=== PATIENT | female | born 1995 | race Caucasian/White ===

== ENCOUNTER 2018-08-22 18:42 | Emergency (ER) | END 2018-08-22 23:05 | disposition home or self-care (01) ==

== ENCOUNTER 2019-02-03 08:37 | Emergency (ER) | payer OTHER ==
[~2019-02-03] VITALS: Ht 157.5 cm; Wt 70.2 kg
[~2019-02-03 08:37] MED LIST: NAPR-985 PO
[2019-02-03 08:40] VITALS: Ht 157.5 cm; Wt 70.2 kg
[2019-02-03] MEDS ORDERED: ONDANSETRON 4 MG INJ IV STA (09:57)
[2019-02-03] MEDS ORDERED: morphine 4 MG/ML VIAL IV STA (09:57)
[2019-02-03] MEDS ORDERED: ACET500C5 PO (10:41)
[2019-02-03] MEDS ORDERED: ONDA4TAB14 PO (10:41)
--- NOTE | 2019-02-03 11:18 | ERD ---
ER Documentation Chief Complaint Chief Complaint lower abdominal pain, vomitting and diarrhea since 2:30 am today HPI 23-year-old female presenting with abdominal pain and vomiting diarrhea. Patient thinks that she ate some bad vegetables the other day. She took Tylenol. Denies any chest pain or shortness of breath. LNMP January 19. Denies any vaginal bleeding. Denies medical problems. NKDA. Surgical history denies. Social history smokes occasionally. Denies drug use ROS All systems reviewed and are negative except as per history of present illness. Medications Home Meds Active Scripts Acetaminophen* (Tylophen*) 500 Mg Capsule, 1 CAP PO Q6H PRN for PAIN AND OR ELEVATED TEMP, #20 CAP Prov:ROSI ALVES PA-C 02/03/19 Ondansetron (Ondansetron Odt) 4 Mg Tab.rapdis, 4 MG PO Q6H PRN for NAUSEA AND/OR VOMITING, #10 TAB Prov:ROSI ALVES PA-C 02/03/19 Naproxen* (Naprosyn*) 500 Mg Tablet, 500 MG PO BID PRN for PAIN AND/OR INFLAMMATION, #30 TAB Prov:KILEY HEARN PA-C 08/22/18 Allergies Allergies: Coded Allergies: No Known Allergy (Unverified , 02/03/19) PMhx/Soc Medical and Surgical Hx: pt denies Medical Hx, pt denies Surgical Hx Hx Alcohol Use: No Hx Substance Use: Yes (marijuana) Hx Tobacco Use: No Smoking Status: Current every day smoker FmHx Family History: No diabetes, No coronary disease, No other Physical Exam Vitals Vital Signs Date Temp Pulse Resp B/P (MAP) Pulse Ox O2 O2 Flow FiO2 Time Delivery Rate 02/03/19 99.1 83 24 123/83 100 08:40 (96) Physical Exam GENERAL: The patient is well-appearing, well-nourished, in no acute distress HEENT: Atraumatic. Conjunctivae are pink. Pupils equal, round, and reactive to light. There is no scleral icterus. Tympanic membranes clear bilaterally. Oropharynx clear. No nystagmus or photophobia. NECK: C-spine is soft and supple. There is no meningismus. There is no c ervical lymphadenopathy. No JVD. No bruits. No goiter. CHEST: Clear to auscultation bilaterally. There are no rales, wheezes or rhonchi. HEART: Regular rate and rhythm. No murmurs, clicks, rubs or gallops. No S3 or S4. ABDOMEN: Active bowel sounds. No distention. No organomegaly. Mild tenderness palpation generally over the abdomen with no localized tenderness on palpation. Result Diagram: 02/03/1992402/03/1925 Results 24 hrs Laboratory Tests Test 02/03/19 09:25 02/03/19 09:33 White Blood Count 12.2 10^3/ul Red Blood Count 4.24 10^6/ul Hemoglobin 12.8 g/dl Hematocrit 39.1 % Mean Corpuscular Volume 92.2 fl Mean Corpuscular Hemoglobin 30.2 pg Mean Corpuscular Hemoglobin Concent 32.7 g/dl Red Cell Distribution Width 12.7 % Platelet Count 252 10^3/UL Mean Platelet Volume 11.0 fl Immature Granulocytes % 0.200 % Neutrophils % 87.2 % Lymphocytes % 8.5 % Monocytes % 3.9 % Eosinophils % 0.0 % Basophils % 0.2 % Nucleated Red Blood Cells % 0.0 /100WBC Immature Granulocytes # 0.030 10^3/ul Neutrophils # 10.6 10^3/ul Lymphocytes # 1.0 10^3/ul Monocytes # 0.5 10^3/ul Eosinophils # 0.0 10^3/ul Basophils # 0.0 10^3/ul Nucleated Red Blood Cells # 0.0 10^3/ul Urine Color YELLOW Urine Clarity CLEAR Urine pH 5.0 Urine Specific Mascot 1.019 Urine Ketones NEGATIVE mg/dL Urine Nitrite NEGATIVE mg/dL Urine Bilirubin NEGATIVE mg/dL Urine Urobilinogen NEGATIVE mg/dL Urine Leukocyte Esterase NEGATIVE Cyril/ul Urine Hemoglobin NEGATIVE mg/dL Urine Glucose NEGATIVE mg/dL Urine Total Protein NEGATIVE mg/dl Sodium Level 142 mmol/L Potassium Level 4.1 mmol/L Chloride Level 108 mmol/L Carbon Dioxide Level 23 mmol/L Anion Gap 11 Blood Urea Nitrogen 14 mg/dl Creatinine 0.58 mg/dl Est Glomerular Filtrat Rate mL/min > 60 mL/min Glucose Level 106 mg/dl Calcium Level 9.9 mg/dl Total Bilirubin 0.7 mg/dl Direct Bilirubin 0.00 mg/dl Indirect Bilirubin 0.7 mg/dl Aspartate Amino Transf (AST/SGOT) 22 IU/L Alanine Aminotransferase (ALT/SGPT) 24 IU/L Alkaline Phosphatase 62 IU/L Total Protein 7.7 g/dl Albumin 4.4 g/dl Globulin 3.30 g/dl Albumin/Globulin Ratio 1.33 Lipase 63 U/L POC Beta HCG, Qualitative NEGATIVE Current Medications Medications Dose Sig/Yajaira Start Time Status Last (Trade) Ordered Route PRN Stop Time Admin Dose Reason Admin Morphine 4 mg ONCE STAT 02/03/19 DC 02/03/19 Sulfate IV 09:57 10:01 (morphine) 02/03/19 09:58 Ondansetron 4 mg ONCE STAT 02/03/19 DC 02/03/19 HCl (Zofran IV 09:57 10:01 Inj) 02/03/19 09:58 Procedures/MDM DIAGNOSTIC IMAGING REPORT Patient: EDWIN HERNANDEZ : 1995 Age: 23 Sex: F MR #: [id number] DOS: 02/03/1910 Ordering MD: LIGIA ALVES PA-C Location: E Room/Bed: PROCEDURE: CT ABDOMEN AND PELVIS WITHOUT CONTRAST. CLINICAL INDICATION: Abdominal pain TECHNIQUE: CT scan of the abdomen and pelvis without contrast was performed on a multidetector high-resolution CT scanner. The patient was scanned without intravenous contrast. Coronal and sagittal reformatted images were obtained from the axial source images. Images were reviewed on a high-resolution PACS workstation. The total exam CTDI equals 12.6 mGy and the total exam DLP equals 664 mGy-cm. One or more of the following dose reduction techniques were used: Automated exposure control. Adjustment of the mA and/or kV according to patient size. Use of iterative reconstruction technique. DICOM images are available COMPARISON: None FINDINGS: CT abdomen: The lung bases are clear. The heart size is within normal limits. There is no significant pericardial effusion. Hepatic morphology is within normal limits. No gross contour deforming masses. The gallbladder is within normal limits. No evidence of intrahepatic or extrahepatic biliary dilatation. The spleen and pancreas are within normal limits. Both adrenal glands are within normal limits. Both kidneys are in normal anatomic position. No evidence of obstruction or hydronephrosis. No gross renal/ureteric calculi. The visualized GI tract demonstrate normal caliber loops of small and large bowel. No evidence of bowel obstruction. The appendix is within normal limits. Stool filled loops of large bowel suggestive of constipation. The unenhanced aorta is unremarkable. There is no significant retroperitoneal lymphadenopathy. CT pelvis: The bladder is within normal limits. The uterus is unremarkable. Rectosigmoid colon demonstrates stool. No significant free fluid. No pelvic lymphadenopathy. The visualized osseous structures appears to be within normal limits. IMPRESSION: 1. No evidence of acute intra-abdominal/pelvic inflammatory process. No evidence of bowel obstruction. Stool filled loops of large bowel suggestive of constipation. The appendix is within normal limits. 2. No gross renal/ureteric calculi. No evidence of obstructive uropathy. 3. No evidence of free fluid or free air. No gross focal fluid collections. ER course: Zofran and 1 L normal saline given ED. MDM: 23-year-old female presenting with abdominal pain. I have low suspicion for acute abdominal emergency. CT scan is within normal limits. I have low suspicion for electrolyte abnormality. I have low suspicion for ectopic or pelvic emergency. Exam is non-concerning. Patient is discharged with supportive medications and is told to follow-up with primary care within 1- 2 days for close evaluation. Patient is told if symptoms change or worsen to return immediately to the ER. All questions answered at discharge Departure Diagnosis: Primary Impression: Vomiting Additional Impression: Abdominal pain Condition: Stable Patient Instructions: Abdominal Pain, Vomiting (5Y-Adult) Referrals: [facility] YOU HAVE RECEIVED A MEDICAL SCREENING EXAM AND THE RESULTS INDICATE THAT YOU DO NOT HAVE A CONDITION THAT REQUIRES URGENT TREATMENT IN THE EMERGENCY DEPARTMENT. FURTHER EVALUATION AND TREATMENT OF YOUR CONDITION CAN WAIT UNTIL YOU ARE SEEN IN YOUR DOCTORS OFFICE WITHIN THE NEXT 1-2 DAYS. IT IS YOUR RESPONSIBILITY TO MAKE AN APPOINTMENT FOR FOLOW-UP CARE. IF YOU HAVE A PRIMARY DOCTOR --you should call your primary doctor and schedule an appointment IF YOU DO NOT HAVE A PRIMARY DOCTOR YOU CAN CALL OUR PHYSICIAN REFERRAL HOTLINE AT IF YOU CAN NOT AFFORD TO SEE A PHYSICIAN YOU CAN CHOSE FROM THE FOLLOWING [facility] [address] [facility] [address] [facility] [address] [facility] [address] [facility] [address] [facility] [facility]. [address] Additional Instructions: FOLLOW UP WITH YOUR PRIMARY CARE PHYSICIAN TOMORROW.Return to this facility if you are not improving as expected. ROSI ALVES PA-C Feb 03, 2019 11:18
== END 2019-02-03 10:56 | disposition home or self-care (01) ==
LOC: FTE 08:37
DX: R11.10 Vomiting, unspecified (principal); F17.210 Nicotine dependence, cigarettes, uncomplicated
CPT/HCPCS: 74176; 80053; 81003; 81025; 83690; 85025; J2270; J2405; 36415; 96374; 96375